=== PATIENT | female | born 1985 | race Caucasian/White ===

== ENCOUNTER 2016-12-25 21:43 | Emergency (ER) | payer OTHER ==
[~2016-12-25 21:43] MED LIST: AMOXICILLIN PO; AMOXICILLIN875 MG PO; CLEOCIN HCL150 MG PO; CONCERTA54 M1 PO; CORTISPORIN-TC10 ML OT; DILANTIN PO; GLUCOPHAGE500 M1 PO; KLONOPIN1 MG PO; OCEAN45 ML; PEN-VEE K PO; PRILOSEC20 M1 PO; PROZAC PO; TOPAMAX PO; TYLENOL #3 PO; ZOFRAN PO; ZYRTEC PO
[2016-12-25 21:52] LABS: INFLUENZA A NEG (NEG); INFLUENZA B NEG (NEG)
== END 2016-12-25 22:36 | disposition home or self-care (01) ==
LOC: SED 21:43
PROVIDERS: Physician Assistant
DX: J06.9 Acute upper respiratory infection, unspecified (principal); I10 Essential (primary) hypertension; Z90.721 Acquired absence of ovaries, unilateral
CPT/HCPCS: 87651; 87804; 99283